=== PATIENT | female | born 1945 ===

== ENCOUNTER 2018-02-24 10:30 | Inpatient (IN) | payer OTHER ==
[~2018-02-24] VITALS: Ht 157.5 cm; Wt 79.4 kg
[2018-03-04] MEDS ORDERED: SIMVASTATIN40 MG PO (12:14)
[2018-03-04] MEDS ORDERED: LEVO-T88 MCG PO (12:14)
[2018-03-04] MEDS ORDERED: ADRENOID CAPSU1 EACH PO (12:15)
[2018-03-04] MEDS ORDERED: LASIX20 MG PO (12:15)
[2018-03-04] MEDS ORDERED: D3 + K2 DOTS 11 EACH PO (12:15)
[2018-03-04] MEDS ORDERED: MOBIC7.5 M1 PO (12:16)
[2018-03-11] MEDS ORDERED: DOCUSATE SODIU100 MG PO (12:06)
[2018-03-11] MEDS ORDERED: GABAPENTIN800 MG PO (12:06)
[2018-03-11] MEDS ORDERED: AMOX-CLAV 875-1 EACH PO (12:07)
[2018-03-11] MEDS ORDERED: PERCOCET 5-3251 EACH PO (12:07)
[2018-03-11] MEDS ORDERED: CLONAZEPAM1 MG PO (12:07)
== END 2018-03-11 16:30 | DRG 460 ==
LOC: O/R 03-10 05:36 → PED 03-10 05:36 → SURH 03-10 10:30 → PED 03-10 18:15
PROVIDERS: Orthopaedic Surgery Orthopaedic Surgery of the Spine
PROC: 0ST20ZZ Resection of Lumbar Vertebral Disc, Open Approach (ICD-10-PCS; 2018-03-10)
PROC: 0SJ Lower Joints, Inspection (ICD-10-PCS; 2018-03-10)
PROC: 0SP00AZ Removal of Interbody Fusion Device from Lumbar Vertebral Joint, Open Approach (ICD-10-PCS; 2018-03-10)
PROC: 07DS3ZZ Extraction of Vertebral Bone Marrow, Percutaneous Approach (ICD-10-PCS; 2018-03-10)
PROC: 0SG10A0 Fusion of 2 or more Lumbar Vertebral Joints with Interbody Fusion Device, Anterior Approach, Anterior Column, Open Approach (ICD-10-PCS; principal; 2018-03-10 16:15)
DX: M96.0 Pseudarthrosis after fusion or arthrodesis (principal); T84.84XA Pain due to internal orthopedic prosthetic devices, implants and grafts, initial encounter